=== PATIENT | male | born 1990 | race Two or more races ===

== ENCOUNTER 2023-10-19 10:41 | Emergency (ER) | payer OTHER ==
[~2023-10-19] VITALS: Ht 177.8 cm; Wt 90.7 kg
== END 2023-10-19 13:27 ==
LOC: ER 10:42
DX: T15.82XA Foreign body in other and multiple parts of external eye, left eye, initial encounter (principal); W44.8XXA Other foreign body entering into or through a natural orifice, initial encounter; Y93.89 Activity, other specified; Y92.89 Other specified places as the place of occurrence of the external cause; I10 Essential (primary) hypertension